=== PATIENT | female | born 1950 | race Caucasian/White ===

== ENCOUNTER → 2016-11-03 | Outpatient (CLI) | payer MEDICARE, OTHER ==
--- NOTE | 2016-11-03 17:32 | PN ---
66 -year-old female patient coming in for a yearly check regarding obstructive sleep apnea. The patient has sleep apnea. The patient has undergone a sleep study and treatment at the sleep center in [place]. She is using his CPAP at a pressure of 9 cm of water. She has heated humidity knowing that summer time she is in [place] and Winter time she is in [place] and in both instances she is not requiring any significant humidification. She is wearing a bite guard. She is using a Vi De Paz nasal pillow, and her weight is up by around 6 pounds. The patient used to weigh around 216 last year and currently he is up to 222. No major hypersomnia or sleepiness during the day. No other major comorbidities. She is averaging around 8 hours and 36 minutes of CPAP use every night. She is achieving more than 4 hours of CPAP use every night without any interruption. BP is 164/72, pulse 67, respiratory rate 16, temperature is 98.3, sats are 96% on room air. Neck size 14 inches. Height is 5 feet 4 inches, weight is 222. GENERAL APPEARANCE: Calm, comfortable. HEENT: Crowding of posterior pharynx. There is no goiter or neck mass. LUNGS: Clear to auscultation. HEART: Sounds are regular rate and rhythm. Normal S1, S2. No S3. No S4. No murmurs. ABDOMEN: Soft, nontender, no organomegaly. EXTREMITIES: No edema. No cyanosis or clubbing. IMPRESSION: 1. Obstructive sleep apnea. Continues to receive successful CPAP therapy at a pressure of 9 cm of water. 2. Grinding of the teeth, waiting a bite guard. 3. Diverticular disease. 4. Osteoarthritis. 5. Migrainous hypothyroidism. 6. Stress urine incontinence. 7. Anxiety/depression. 8. Bronchial asthma. PLAN: 1. Continue Vi De Paz nasal mask. 2. Keep the humidity off. 3. Continue CPAP pressure of 9. 4. Encourage weight loss. 5. Implement good sleep hygiene measures. 6. Will continue to follow.
== END ==
LOC: SLEEP 13:03
PROVIDERS: ATTEND Internal Medicine Critical Care Medicine
DX: G47.33 Obstructive sleep apnea (adult) (pediatric) (principal); M19.90 Unspecified osteoarthritis, unspecified site; K57.90 Diverticulosis of intestine, part unspecified, without perforation or abscess without bleeding; G47.63 Sleep related bruxism; E03.9 Hypothyroidism, unspecified; N39.3 Stress incontinence (female) (male); F41.9 Anxiety disorder, unspecified; F32.9 Major depressive disorder, single episode, unspecified; J45.909 Unspecified asthma, uncomplicated

== ENCOUNTER → 2016-11-11 | Outpatient (CLI) | payer MEDICARE, OTHER ==
--- NOTE | 2016-11-11 20:04 | WWHP ---
DATE OF SERVICE: 11/11/2016 CHIEF COMPLAINT: The patient is here for her routine gynecologic exam. HPI: This is a 66-year-old G1, P1 with an LMP of 1986. She is status post [facility] with unilateral oophorectomy in 1986 for benign reasons. The patient had her remaining ovary removed in the and this was benign. The patient discontinued estrogen replacement therapy in 02/13 as per my recommendation. She states she did have more hot flashes when she discontinued it but this has improved and is fairly tolerable. She has occasional night sweats and occasional hot flashes during the day. She is otherwise without gynecologic complaints. PAST MEDICAL HISTORY: COPD, hypothyroidism, elevated cholesterol, depression, anxiety, diverticulosis and gastroesophageal reflux disease. MEDICATIONS: 1. Omeprazole 20 mg 3 times per week. 2. Xopenex inhaler p.r.n. 3. Fluoxetine 20 mg daily. 4. Xanax 0.25 mg p.r.n. 5. Levothyroxine 75 mcg daily. 6. Rizatriptan benzoate 10 mg p.r.n. for headaches. 7. Multivitamin 1 daily. 8. Vitamin D3 1000 units daily. 9. Calcium daily. 10. Glucosamine chondroitin daily. 11. Wellbutrin 150 mg daily. ALLERGIES TO TETRACYCLINE, SYMBICORT, MORPHINE. 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 SOCIAL HISTORY: She quit smoking in 1991 and denies alcohol and drug use. She has been since 1984. This is her third marriage. She spends the winter each year in [place]. REVIEW OF SYSTEMS: Weight has been stable. She denies respiratory, cardiac problems. She denies maltreatment or falling. GI: She has had occasional constipation since starting Wellbutrin. : She continues to have some urinary leakage with coughing and sneezing. PHYSICAL EXAM: Blood pressure 137/81. Height 5 feet 4 inches. Weight 220 pounds. Temperature 98.1, pulse 76. This is a well-developed, well-nourished white female who is alert and oriented x3 in no acute distress. HEENT is within normal limits. NECK: Supple without mass or thyromegaly. CHEST AND LUNGS: Clear to auscultation. HEART: Regular rate and rhythm. Breasts are without mass or discharge and are consistent with bilateral mastectomies with bilateral implants. Axillary exam is negative for adenopathy. BACK: Negative for CVA tenderness. ABDOMEN: Soft, nontender, without palpable masses. PELVIC EXAM: External genitalia reveals mild to moderate atrophy without lesions. Vagina reveals mild to moderate atrophy without lesions. There is no evidence of prolapse. Bimanual exam is negative for mass or tenderness. Rectovaginal exam is negative for mass or tenderness and is negative for occult blood. EXTREMITIES: Nontender. IMPRESSION: 1. A 66-year-old menopausal female, status post total abdominal hysterectomy and bilateral salpingo-oophorectomy for benign reasons with normal gynecologic exam. 2. History of bilateral prophylactic mastectomies with bilateral implants in place. PLAN: 1. Pap smears and mammograms have been discontinued because of her hysterectomy and bilateral mastectomies. 2. Self-breast examination was discussed. I have recommended that she follow up with a plastic surgeon if she has any issues with her implants. 3. We have again discussed blood pressure checks and she states she will do this at home since her does have a blood pressure cuff. I have recommended she do this on a regular basis and follow up with Dr. Huggins for elevated blood pressures. 4. We have again discussed Kegel exercises and regular voiding. We have also discussed possible referral for an incontinence procedure. She states she is not interested in this at this time. 5. She does get flu shots in the fall and will do so this fall. 6. She will return in one year.
== END | disposition home or self-care (01) ==
LOC: WWCWWP 10:37
PROVIDERS: ATTEND Obstetrics & Gynecology
DX: Z53.9 Procedure and treatment not carried out, unspecified reason (principal)

== ENCOUNTER → 2016-11-17 | Outpatient (CLI) | payer MEDICARE, OTHER ==
--- NOTE | 2016-11-17 17:06 | US ---
EXAMINATION TYPE: US carotid duplex BILAT DATE OF EXAM: 11/17/2016 COMPARISON: NONE CLINICAL HISTORY: I65.21 Occlusion and stenosis right carotid. Stenosis, pt has no complaints at this time EXAM MEASUREMENTS: RIGHT: Peak Systolic Velocity (PSV) cm/sec ----- Right CCA: 66.8 ----- Right ICA: 104.0 ----- Right ECA: 72.9 ICA/CCA ratio: 1.6 RIGHT: End Diastole cm/sec ----- Right CCA: 17.1 ----- Right ICA: 31.4 ----- Right ECA: 9.2 LEFT: Peak Systolic Velocity (PSV) cm/sec ----- Left CCA: 67.7 ----- Left ICA: 97.4 ----- Left ECA: 60.9 ICA/CCA ratio: 1.4 LEFT: End Diastole cm/sec ----- Left CCA: 18.8 ----- Left ICA: 33.6 ----- Left ECA: 11.8 VERTEBRALS (direction of flow): Right Vertebral: Antegrade Left Vertebral: Antegrade No significant stenosis seen IMPRESSION: I DO NOT SEE EVIDENCE OF A HEMODYNAMICALLY SIGNIFICANT STENOSIS IN EITHER CAROTID SYSTEM. Criteria for Assigning % of Stenosis / Diameter reduction (Estimation based on the indirect measurements of the internal carotid artery velocities (ICA PSV). 1. Normal (no stenosis)=ICA PSV < 125 cm/s: ratio < 2.0: ICA EDV<40 cm/s. 2. Less than 50% stenosis=ICA PSV < 125 cm/s: ratio < 2.0: ICA EDV<40 cm/s. 3. 50 to 69% stenosis=ICA PSV of 125 to 230 cm/s: ration 2.0 ? 4.0: ICA EDV 40-100 cm/s. 4. Greater than 70% stenosis to near occlusion= ICA PSV > 230 cm/s: ratio > 4.0: ICA EDV > 100 cm/s. 5. Near occlusion= ICA PSV velocities may be low or undetectable: variable ratio and ICA EDV. 6. Total occlusion=unable to detect flow.
== END | disposition home or self-care (01) ==
LOC: RADUSWWP 15:35
PROVIDERS: ATTEND Family Medicine
DX: I65.21 Occlusion and stenosis of right carotid artery (principal)
CPT/HCPCS: 93880

== ENCOUNTER → 2017-11-16 | Outpatient (CLI) | payer MEDICARE, OTHER ==
[2017-11-16 11:58] VITALS: BP 129/82; PULSE 73; RESP 18; TEMP 97.9; BMI 34.0
--- NOTE | 2017-11-16 12:27 | P.HPOB ---
History of Present Illness H&P Date: 11/16/17 Chief Complaint: Patient is here for her routine gynecologic exam. This is a 67-year-old with an LMP of 1986. The patient has had occasional boils in the groin area and in the pubis area. She will sometimes try to pop them to get relief. She currently is not having a problem with this. She is otherwise without complaints. Review of Systems She is lost about 22 pounds over the last year. She has done this through Weight Watchers and regular exercise. She denies respiratory, cardiac, or G.I. problems. She denies maltreatment. She did fall once in August of this year. She sprained her hand. : she denies any significant problems with urinary leakage. Past Medical History Past Medical History: COPD, Hyperlipidemia, Hypertension, Thyroid Disorder ( Hypothyroid) Additional Past Medical History / Comment(s): Diverticulosis. 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 History of Any Multi-Drug Resistant Organisms: None Reported Past Surgical History: Breast Surgery (Bilateral mastectomies for prophylaxis. Bilateral breast implants with multiple revisions.), Hysterectomy (OSCAR with unilateral oophorectomy in 1986. The remaining ovary was removed in the .) , Tonsillectomy Additional Past Surgical History / Comment(s): Colon resection for diverticulosis. Colonoscopy 2013. Past Anesthesia/Blood Transfusion Reactions: No Reported Reaction Past Psychological History: Anxiety, Depression Smoking Status: Former smoker (Quit 1991) Past Alcohol Use History: None Reported Past Drug Use History: None Reported Additional History: She's been since 1984 and this is her 3rd marriage. She green in [place]. - Past Family History Father Family Medical History: Myocardial Infarction ([place]) Additional Family Medical History / Comment(s): She is adopted so family history is limited. A grandmother had breast cancer. Father was an alcoholic. Medications and Allergies Home Medications Medication Instructions Recorded Confirmed Type ALPRAZolam [Xanax] 0.25 mg PO DAILY PRN 11/16/17 11/16/17 History Calcium Carbonate [Calcium] 600 mg PO DAILY 11/16/17 11/16/17 History Cholecalciferol [Vitamin D3] 1,000 unit PO DAILY 11/16/17 11/16/17 History FLUoxetine HCL [PROzac] 20 mg PO DAILY 11/16/17 11/16/17 History Fluticasone Propionate [Flovent 2 puff INHALATION BID 11/16/17 11/16/17 History Hfa 110mcg] Glucosam/Russell-Msm1/C/Mauro/Bosw 1 each PO DAILY 11/16/17 11/16/17 History [Glucosamine-Chondroitin Tablet] Levalbuterol Tartrate [Xopenex Hfa 1 puff INHALATION DAILY 11/16/17 11/16/17 History Inhaler] Levothyroxine Sodium [Synthroid] 75 mcg PO DAILY 11/16/17 11/16/17 History Losartan Potassium 50 mg PO DAILY 11/16/17 11/16/17 History Multivitamins, Thera [Multivitamin 1 tab PO DAILY 11/16/17 11/16/17 History (formulary)] Omeprazole 20 mg PO WEEKLY 11/16/17 11/16/17 History Rizatriptan Benzoate [Maxalt PARIMUTUEL CASHIER] 10 mg PO DIRECTED 11/16/17 11/16/17 History Allergies Allergy/AdvReac Type Severity Reaction Status Date / Time amlodipine Allergy Unknown Verified 11/16/17 11:49 budesonide [From Symbicort] Allergy Anaphylaxis Verified 11/16/17 11:49 formoterol [From Symbicort] Allergy Anaphylaxis Verified 11/16/17 11:49 tetracycline Allergy Nausea Verified 11/16/17 11:49 morphine AdvReac Unknown Verified 11/16/17 11:49 Exam - Vital Signs Vital signs: Vital Signs Temp Pulse Resp BP 11/16/17 11:52 97.9 F 73 18 129/82 Intake and Output 11/15/17 11/16/17 11/16/17 22:59 06:59 14:59 Other: Weight 89.811 kg Height 5'4", BMI 34.0. This is a well-developed well-nourished white female who is alert and oriented times 3 in no acute distress. HEENT: Within normal limits. NECK: Supple without mass or thyromegaly. CHEST AND LUNGS: Clear to auscultation. HEART: Regular rate and rhythm. BREASTS: Are without mass or discharge and are consistent with bilateral mastectomies status post bilateral implant placement. AXILLARY EXAM: Negative for adenopathy. BACK: Negative for CVA tenderness. ABDOMEN: Soft, nontender, without palpable masses. PELVIC EXAM: External genitalia appears normal with mild to moderate atrophy. Vagina appears normal wild to moderate atrophy. There are slightly scarred areas in the inner buttock region and minds pubis areas consistent with previous boils. There are currently no active boils at this time. There is no evidence of prolapse. Bimanual examination is negative for mass or tenderness. RECTAL EXAM: Rectovaginal exam is negative for mass or tenderness and is negative for occult blood. EXTREMITIES: Nontender. IMPRESSION: 1. 67-year-old menopausal female status post OSCAR and BSO for benign reasons with normal gynecologic exam. 2. Intermittent boils in the groin area with no active boils at this time. PLAN: 1. Pap smears have been discontinued. 2. Self breast awareness was discussed. Mammograms have been discontinued since she status post bilateral mastectomies for prophylaxis. 3. I have recommended that she avoid popping the boils the groin area. I've recommended warm compresses and Neosporin as directed when she does develop the boils. 4. Osteoporosis prevention was discussed. She will contact Dr. Huggins's office to see when she is due for her next bone density test which was last done at [facility]. 5. She does get flu shots in the fall. 6. She will return in one year.
== END | disposition home or self-care (01) ==
LOC: WWCWWP 11:21
PROVIDERS: ATTEND Obstetrics & Gynecology
DX: Z01.419 Encounter for gynecological examination (general) (routine) without abnormal findings (principal)

== ENCOUNTER → 2018-01-04 | Outpatient (CLI) | payer MEDICARE, OTHER ==
--- NOTE | 2018-01-04 15:09 | PN ---
PROGRESS NOTE Barbra is coming for an annual check regarding JN treatment. She is on CPAP with a pressure of 9 cm of water and she continues to be extremely successful and compliant to her CPAP therapy. She is averaging more than 8 hours of CPAP use per night and specifically 8 hours and 42 minutes and her CPAP use for more than 4 hours is 100%. She has lost this amount of weight in the order of 32 pounds. Currently she weighs 190 pounds from baseline of 222. She is feeling great and she has no major hypersomnia or sleepiness during the day. She is using a Vi De Paz nose mask. At the same time the patient has purchased an [employer] 1 portable oxygen tank. The patient does lot of camping around [place] and she has been in various altitudes and she gets altitude sickness. She has a pulse oximeter, and she is wearing oxygen at 2 L any time when she is camping at the higher altitude. No morning headaches. No altered mental status. No nighttime heartburn or chest pain. No shortness of breath. No other complaints otherwise for now. REVIEW OF SYSTEMS: 12-point review of system was done. Positive findings are mentioned above history of present illness. PHYSICAL EXAMINATION: BP is 111/60, pulse 67, respirations 16, temperature 97.8, saturation 93% on room air. Weight is 190, height is 5 feet, BMI 33.1, Energy score of 6. GENERAL APPEARANCE: Calm, comfortable. Head is atraumatic, normocephalic. NECK: Supple. There is no JVD. No goiter or neck masses. LUNGS: Clear to auscultation. HEART: Sounds regular rhythm. Normal S1, S2. No S3. No murmurs. ABDOMEN: Soft, nontender. No organomegaly. EXTREMITIES: No edema. No cyanosis or clubbing. IMPRESSION: 1. Symptomatic obstructive sleep apnea currently on CPAP pressure of 9 cm of water with ongoing good clinical response and compliance. 2. Obesity with interval weight loss. Current BMI is down to 33. 3. Hypersomnia, recovered. 4. History of altitude sickness. PLAN: 1. Continue CPAP therapy at the same level of pressure. All of CPAP supplies were renewed including the tubing, filters and mask. She is using a De Paz Vi nose mask. 2. Encourage further weight loss, probably additional 10-20 pounds. 3. Oxygen at higher altitudes. 4. See me back in a year's time or earlier if needed. MMODL / IJN: [id number] /
== END | disposition home or self-care (01) ==
LOC: SLEEP 13:11
PROVIDERS: ATTEND Internal Medicine Critical Care Medicine
DX: G47.33 Obstructive sleep apnea (adult) (pediatric) (principal); E66.9 Obesity, unspecified; Z68.33 Body mass index [BMI] 33.0-33.9, adult; Z87.898 Personal history of other specified conditions; Z99.89 Dependence on other enabling machines and devices

== ENCOUNTER → 2019-01-03 | Outpatient (CLI) | payer MEDICARE, OTHER ==
[2019-01-03 15:24] VITALS: BP 124/80; PULSE 68; RESP 18; TEMP 98.5; BMI 36.2
--- NOTE | 2019-01-03 16:15 | P.HPOB ---
History of Present Illness H&P Date: 01/03/19 Chief Complaint: The patient is here for her routine gynecologic exam. This is a 68-year-old within LMP of 1986. The patient thinks her left breast implant may have shifted. She is otherwise without gynecologic complaints. She is status post OSCAR BSO for benign reasons. Review of Systems She has gained 11 pounds over the last year. This was after losing 22 pounds with Weight Watchers. She denies respiratory, cardiac and G.I. problems. She denies maltreatment or problems with falling. : she denies any significant problems with urinary leakage. Past Medical History Past Medical History: COPD, Hyperlipidemia, Hypertension, Thyroid Disorder Additional Past Medical History / Comment(s): Hypothyroidism. Diverticulosis. 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 History of Any Multi-Drug Resistant Organisms: None Reported Past Surgical History: Breast Surgery, Hysterectomy, Tonsillectomy Additional Past Surgical History / Comment(s): OSCAR with unilateral oophorectomy in 1986. Bilateral prophylactic mastectomies in 1977. Her remaining ovary removed(benign) in the . Colon resection for diverticulosis. Colonoscopy 2013. Past Anesthesia/Blood Transfusion Reactions: No Reported Reaction Past Psychological History: Anxiety, Depression Smoking Status: Former smoker Past Alcohol Use History: None Reported Past Drug Use History: None Reported - Past Family History Father Family Medical History: Myocardial Infarction ([place]) Additional Family Medical History / Comment(s): She is adopted so family history is limited. A grandmother had breast cancer. Father was an alcoholic. Medications and Allergies Home Medications Medication Instructions Recorded Confirmed Type ALPRAZolam [Xanax] 0.25 mg PO DAILY PRN 11/16/17 01/03/19 History Calcium Carbonate [Calcium] 600 mg PO DAILY 11/16/17 01/03/19 History Cholecalciferol [Vitamin D3] 1,000 unit PO DAILY 11/16/17 01/03/19 History FLUoxetine HCL [PROzac] 20 mg PO DAILY 11/16/17 01/03/19 History Fluticasone Propionate [Flovent 2 puff INHALATION BID 11/16/17 01/03/19 History Hfa 110mcg] Glucosam/Russell-Msm1/C/Mauro/Bosw 1 each PO DAILY 11/16/17 01/03/19 History [Glucosamine-Chondroitin Tablet] Levalbuterol Tartrate [Xopenex Hfa 1 puff INHALATION DAILY 11/16/17 01/03/19 History Inhaler] Levothyroxine Sodium [Synthroid] 75 mcg PO DAILY 11/16/17 01/03/19 History Multivitamins, Thera [Multivitamin 1 tab PO DAILY 11/16/17 01/03/19 History (formulary)] Omeprazole 20 mg PO WEEKLY 11/16/17 01/03/19 History Rizatriptan Benzoate [Maxalt TABLE OPERATOR] 10 mg PO DIRECTED 11/16/17 01/03/19 History Olmesartan [Benicar] 20 mg PO DAILY 01/03/19 01/03/19 History Allergies Allergy/AdvReac Type Severity Reaction Status Date / Time amlodipine Allergy Unknown Verified 01/03/19 15:25 budesonide [From Symbicort] Allergy Anaphylaxis Verified 01/03/19 15:25 formoterol [From Symbicort] Allergy Anaphylaxis Verified 01/03/19 15:25 tetracycline Allergy Nausea Verified 01/03/19 15:25 morphine AdvReac Unknown Verified 01/03/19 15:25 Exam Vital Signs Temp Pulse Resp BP Pulse Ox 01/03/19 15:17 98.5 F 68 18 124/80 95 Intake and Output 01/03/19 01/03/19 01/03/19 06:59 14:59 22:59 Other: Weight 95.708 kg Height 5'4", weight 211 pounds, BMI 36.2. This is a well-developed well-nourished white female who is alert and oriented times 3 in no acute distress. HEENT: Within normal limits. NECK: Supple without mass or thyromegaly. CHEST AND LUNGS: Clear to auscultation. HEART: Regular rate and rhythm. BREASTS: Are without mass or discharge. Both breasts are consistent with bilateral implants. The left implant seems shifted slightly lateral. There are no palpable masses and the implants are both soft and nontender. AXILLARY EXAM: Negative for adenopathy. BACK: Negative for CVA tenderness. ABDOMEN: Soft without palpable masses. There is minimal tenderness at her lower abdominal incision site. The incision is non-erythematous and intact. With Valsalva seems to be a very slight bulge at the incision site where she is slightly tender. PELVIC EXAM: External genitalia appears normal with mild to moderate atrophy. Vagina appears normal with mild to moderate atrophy. There is no evidence of prolapse. Bimanual examination is negative for mass. There is minimal tende rness in the lower abdomen as described in the abdominal examination. RECTAL EXAM: Rectovaginal exam is negative for mass or tenderness and is negative for occult blood. EXTREMITIES: Nontender. IMPRESSION: 1. 68-year-old menopausal female status post OSCAR BSO with normal gynecologic exam. 2. History of bilateral mastectomies for prophylaxis. There may be a slight lateral shift in the left implant. 3. Possible lower abdominal incisional hernia. The patient states that has not caused her much problem. PLAN: 1. Pap smears have been discontinued. 2. Self breast awareness was discussed with the patient. 3. Mammograms have been discontinued because of the bilateral mastectomies. 4. She was instructed to follow-up with her plastic surgeon who put in the implants. She states she will do this in the near future. 5. She will follow up with her primary care doctor if she is having lower abdominal incisional pains for evaluation and possible referral to a general surgeon. 6. She does get flu shots in the fall. 7. The patient was advised to return in 1-2 years for her well woman examination.
== END | disposition home or self-care (01) ==
LOC: WWCWWP 15:12
PROVIDERS: ATTEND Obstetrics & Gynecology
DX: Z53.9 Procedure and treatment not carried out, unspecified reason (principal)

== ENCOUNTER → 2019-01-11 | Outpatient (CLI) | payer MEDICARE, OTHER ==
--- NOTE | 2019-01-11 15:28 | BD ---
EXAMINATION TYPE: Axial Bone Density DATE OF EXAM: 01/11/2019 COMPARISON: 02.28.2003 CLINICAL HISTORY: Z 78.0 Height: 64 Weight: 209.4 FRAX RISK QUESTIONS: Alcohol (3 or more units per day): no Family History (Parent hip fracture): no Glucocorticoids (More than 3mos): no (Ex: prednisone, prednisolone, methylprednisolone, dexamethasone, and hydrocortisone). History of Fracture in Adulthood: yes Secondary Osteoporosis: 1. Type 1 Diabetes: no 2. Hyperthyroidism: no 3. Menopause before 45: yes 4. Malnutrition: no 5. Chronic liver disease: no Rheumatoid Arthritis: no Current Tobacco Use: no RISK FACTORS HISTORY OF: Family History of Osteoporosis: Active: sometimes Diet low in dairy products/other sources of calcium: yes Postmenopausal woman: 1986 partial hysterectomy MEDICATIONS: fluoretine, flovent, xopenex, omeprazole, rizatriptan, xanax, vitamins Thyroid Medications: synthroid How Lon years Additional History: EXAM MEASUREMENTS: Bone mineral densitometry was performed using the [employer] System. Bone mineral density as measured about the Lumbar spine is: ----- L1-L4(G/cm2): 1.190 T Score Values are as follows: ----- L2: 0.5 ----- L3: 0.3 ----- L4: -0.2 ----- L1-L4: 0.1 Bone mineral density has: increased 3.0 % since study of: 02.28.2003 Bone mineral density about the R hip (g/cm2): 0.890 Bone mineral density about the L hip (g/cm2): 0.899 T Score values are as follows: -----R Neck: -1.1 -----L Neck: -1.0 -----R Total: 0.0 -----L Total: 0.5 Bone mineral density has: decreased -4.2 % since study of: 02.28.2003 IMPRESSION: Osteopenia (T Score between -2.5 and -1). There is slightly increased risk of fracture and the patient may be considered for treatment. Re-Screen 2-5 years. NOTE: T-SCORE=SD OF THE YOUNG ADULT MEAN.
--- NOTE | 2019-01-17 18:18 | P.PN ---
Progress Note - Text Progress Note Date: 01/17/19 OUTPATIENT FOLLOW-UP NOTE TEST(S)/RESULTS: bone density test done on 01/11/2019 showed osteopenia. METHOD OF NOTIFICATION: the patient was notified by phone. PATIENT COMMENTS: DIAGNOSIS: osteopenia DISCUSSION: her results were closer to normal than osteoporosis. Her previous study was done in 2002 with about a 4% decrease in the hips. PLAN: I have stressed the importance of getting adequate calcium, vitamin D, and regular exercise. We will repeat the bone density test in 3 years. The patient was advised to return in 1-2 years for her well woman examination.
== END | disposition home or self-care (01) ==
LOC: RADBDWWP 13:13
PROVIDERS: ATTEND Obstetrics & Gynecology
DX: M81.8 Other osteoporosis without current pathological fracture (principal); Z78.0 Asymptomatic menopausal state
CPT/HCPCS: 77080

== ENCOUNTER → 2019-01-17 | Outpatient (CLI) | payer MEDICARE, OTHER ==
--- NOTE | 2019-01-17 17:08 | PN ---
PROGRESS NOTE This is an annual check for this patient who is 68. She is coming in for a compliancy check regarding obstructive sleep apnea treatment. The patient has done very well. She is looking to update her CPAP machine, as the patient has an older-generation Respironics unit which is set at a pressure of 9 cm of water. She continues to average more than 8 hours of CPAP use per night. Her weight is stable. There have been no issues with her current machine. She is wearing it every night. She is using the Vi De Paz nose mask, small size. She travels between [place] and [place] and she may benefit from a second CPAP machine to be used in 2 different states. No headaches. No altered mentation. No hypersomnia or sleepiness during the day. She has a pulse ox of 95% on room-air oxygen. No other significant events over the past year or so. REVIEW OF SYSTEMS: Fourteen-point review of systems was done. Positive findings are all mentioned in the history of present illness. She has altitude sickness and she has been using oxygen and she has utilized Inogen One system. She has some mild chronic exertional dyspnea. No chest pain. No angina. No palpitations. No sleepwalking or sleeptalking. No parasomnias. No nightmares. No anxiety or panic attacks. PHYSICAL EXAMINATION: BP is 151/75, pulse 68, respirations 16, temperature 98.1, saturation 95% on room air. Weight is 208. Height is 5 feet 3 inches. Tatamy score is 8. GENERAL APPEARANCE: Calm, comfortable. HEAD: Atraumatic, normocephalic. NECK: Supple. No JVD. No goiter or neck masses. LUNGS: Clear to auscultation. HEART: Heart sounds are regular rate and rhythm. Normal S1, S2. No S3, S4. No murmurs. ABDOMEN: Soft, nontender. No organomegaly. EXTREMITIES: No edema. No cyanosis or clubbing. NEUROLOGIC: Alert and oriented x3. No focal neurological deficits. PSYCHIATRIC: Negative for anxiety or depression. IMPRESSION: 1. Obstructive sleep apnea. She continues to be successfully treated with a CPAP pressure of 9. We will order a new CPAP machine for her, which will be a ResMed unit at the same level of pressure. She continues to use the small-sized Vi nose mask. 2. Hypersomnia, recovered. 3. Altitude sickness; utilizes oxygen during her trips to [place]. 4. Hypersomnia, improved. 5. Hypothyroidism, on Synthroid 75 mcg p.o. daily. 6. Hypertension. PLAN: 1. Will give an order for a new CPAP unit at the same level of pressure, which is 9 cm of water. 2. Compliancy check will be done either here or in [place]. The patient opted to use her DME in [place] and we will sent out the prescription. She will see me back after she arrives in [place] next year. Will continue to follow. MMODL / IJN: [id number] /

== ENCOUNTER → 2020-01-09 | Outpatient (CLI) | payer MEDICARE, OTHER ==
[2020-01-09 16:15] VITALS: BP 115/80; PULSE 89; RESP 18; TEMP 98.1
--- NOTE | 2020-01-09 17:11 | P.HPOB ---
History of Present Illness H&P Date: 01/09/20 Chief Complaint: The patient is here for her routine gynecologic exam. This is a 69-year-old with an LMP of 1986. She is status post OSCAR/BSO for benign reasons. She is complaining of some perineal and perianal irritation and she believes she may be having an HSV outbreak. She has very few outbreaks, however, she believes large amounts of stress recently may have caused her to have an HSV outbreak. She states it started yesterday. She is otherwise without complaints. Review of Systems She has gained about 20 pounds over the past year and attributes this to the Covid pandemic. She states she has been less active because of the pandemic. She denies respiratory, cardiac and G.I. problems. She denies maltreatment. She states she fell about 6 months ago and broke her left arm. The fall was related to a faulty step in her motorhome. : she denies any significant problems with urinary leakage. Past Medical History Past Medical History: COPD, Hyperlipidemia, Hypertension, Thyroid Disorder Additional Past Medical History / Comment(s): Hypothyroidism. Diverticulosis. Osteopenia. 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 History of Any Multi-Drug Resistant Organisms: None Reported Past Surgical History: Breast Surgery, Hysterectomy, Tonsillectomy Additional Past Surgical History / Comment(s): OSCAR with unilateral oophorectomy in 1986. Bilateral prophylactic mastectomies in 1977. Her remaining ovary removed(benign) in the . Colon resection for diverticulosis. Colonoscopy 2013. Past Anesthesia/Blood Transfusion Reactions: No Reported Reaction Past Psychological History: Anxiety, Depression Smoking Status: Former smoker Past Alcohol Use History: None Reported Additional Past Alcohol Use History / Comment(s): Quit smoking in 1991. Past Drug Use History: None Reported Additional History: She has been since 1984 and this is her third marriage. She spends the green in [place]. - Past Family History Father Family Medical History: Myocardial Infarction ([place]) Additional Family Medical History / Comment(s): She is adopted so family history is limited. A grandmother had breast cancer. Father was an alcoholic. Son(s) Family Medical History: Diabetes Mellitus Medications and Allergies Home Medications Medication Instructions Recorded Confirmed Type ALPRAZolam [Xanax] 0.25 mg PO DAILY PRN 11/16/17 01/09/20 History Calcium Carbonate [Calcium] 600 mg PO DAILY 11/16/17 01/09/20 History Cholecalciferol [Vitamin D3] 1,000 unit PO DAILY 11/16/17 01/09/20 History FLUoxetine HCL [PROzac] 20 mg PO DAILY 11/16/17 01/09/20 History Fluticasone Propionate [Flovent 2 puff INHALATION BID 11/16/17 01/09/20 History Hfa 110mcg] Glucosam/Russell-Msm1/C/Mauro/Bosw 1 each PO DAILY 11/16/17 01/09/20 History [Glucosamine-Chondroitin Tablet] Levalbuterol Tartrate [Xopenex Hfa 1 puff INHALATION DAILY 11/16/17 01/09/20 History Inhaler] Levothyroxine Sodium [Synthroid] 75 mcg PO DAILY 11/16/17 01/09/20 History Multivitamins, Thera [Multivitamin 1 tab PO DAILY 11/16/17 01/09/20 History (formulary)] Omeprazole 20 mg PO WEEKLY 11/16/17 01/09/20 History Rizatriptan Benzoate [Maxalt COUNTY SUPERVISOR] 10 mg PO DIRECTED 11/16/17 01/09/20 History Olmesartan [Benicar] 20 mg PO DAILY 01/03/19 01/09/20 History Allergies Allergy/AdvReac Type Severity Reaction Status Date / Time amlodipine Allergy Unknown Verified 01/09/20 16:11 budesonide [From Symbicort] Allergy Anaphylaxis Verified 01/09/20 16:11 formoterol [From Symbicort] Allergy Anaphylaxis Verified 01/09/20 16:11 tetracycline Allergy Nausea Verified 01/09/20 16:11 morphine AdvReac Unknown Verified 01/09/20 16:11 Exam Vital Signs Temp Pulse Resp BP Pulse Ox 01/09/20 16:12 98.1 F 89 18 115/80 98 Intake and Output 01/09/20 01/09/20 01/09/20 06:59 14:59 22:59 Other: Weight 104.78 kg Height 5 feet 4 inches, weight 231 pounds, BMI 39.7. This is a well-developed well-nourished heavyset white female who is alert and oriented times 3 in no acute distress. HEENT: Within normal limits. NECK: Supple without mass or thyromegaly. CHEST AND LUNGS: Clear to auscultation. HEART: Regular rate and rhythm. BREASTS: Are without mass or discharge. Breasts are consistent with bilateral mastectomies status post implant reconstruction. AXILLARY EXAM: Negative for adenopathy. BACK: Negative for CVA tenderness. ABDOMEN: Soft, nontender, without palpable masses. PELVIC EXAM: External genitalia appears normal with mild to moderate atrophy. The perineum and perianal areas are slightly erythematous with small ulcerated areas consistent with HSV lesions. She states these are the areas she typically has gotten genital HSV. Vagina appears normal with mild atrophy. There is no evidence of prolapse. Bimanual examination is negative for mass or tenderness. RECTAL EXAM: Rectovaginal exam is negative for mass or tenderness and is negative for occult blood. EXTREMITIES: Nontender. IMPRESSION: 1. 69-year-old menopausal female status post OSCAR/BSO for benign reasons with pr obable HSV outbreak (secondary) in the perineum and perianal areas. 2. History of osteopenia with recent arm fracture following a fall. 3. History of bilateral mastectomies for prophylaxis. PLAN: 1. Pap smears have been discontinued. 2. Self breast awareness. If she is having issues with breast implants, she was advised to seek a plastic surgeon for evaluation. 3. Mammograms have been discontinued because of the bilateral mastectomies. 4. Osteoporosis prevention was discussed. I have stressed the importance of adequate calcium, vitamin D and regular exercise. Recommended amounts of calcium and vitamin D were also discussed. Because she had a arm fracture after a recent fall, we have discussed possible treatment for weaker bones. We have discussed pros and cons of medications such as Fosamax. We have discussed how it can decrease the risk for fractures. We have also discussed possible risks such as risk for osteonecrosis of the jaw and esophageal ulceration. She is declining this type of treatment at this time. She was instructed to call if she changes her mind. We will plan on repeating bone density test in 1 year since it was done in December 2018. 5. Valtrex 500 mg by mouth twice a day 3 days. The electronic prescription will be sent to [facility] pharmacy on [facility] [facility]. 3 refills will also be given. 6. She does get flu shots in the fall and plans to get one in the next few months. 7. She was advised to return in one year for her annual well woman exam.
--- NOTE | 2020-01-12 13:36 | P.PN ---
Progress Note - Text Progress Note Date: 01/12/20 The patient left a message that the Valtrex PO did not help after the 3 day course. She says she did better for the outbreaks with Zovirax cream. The prescription for acyclovir cream was sent electronically to [facility]. She is to call if questions or problems.
== END | disposition home or self-care (01) ==
LOC: WWCWWP 15:59
PROVIDERS: ATTEND Obstetrics & Gynecology
DX: Z53.9 Procedure and treatment not carried out, unspecified reason (principal)

== ENCOUNTER → 2020-03-28 | Outpatient (CLI) | payer MEDICARE, OTHER | END | disposition home or self-care (01) | LOC: LABWHC1 15:24 | PROVIDERS: ATTEND Nurse Practitioner Family | DX: Z03.818 Encounter for observation for suspected exposure to other biological agents ruled out (principal) | CPT/HCPCS: U0003; C9803 ==

== ENCOUNTER → 2020-03-29 | Outpatient (CLI) | payer MEDICARE, OTHER ==
--- NOTE | 2020-03-29 14:26 | US ---
EXAMINATION TYPE: US kidneys/renal and bladder DATE OF EXAM: 03/29/2020 COMPARISON: NONE CLINICAL HISTORY: R93.89 ABN FINDINGS OF DIAGNOSTIC IMAGING. recent MRI showed cyst on one of her kid ne[place]on EXAM MEASUREMENTS: Right Kidney: 9.4 x 4.4 x 4.6 cm Left Kidney: 9.2 x 4.0 x 5.3 cm Right Kidney: No hydronephrosis or masses seen Left Kidney: 1.7 x 1.9cm exophytic cyst seen laterally Bladder: wnl Bilateral Jets seen: yes There is no evidence for hydronephrosis at this point in time. No nephrolithiasis is seen. No bianca rning solid or cystic masses are identified. Technologist herrera 1.7 cm exophytic thin-walled cyst lat erally from left kidney. The urinary bladder is satisfactorily distended. Bilateral ureteral jets ar e seen. IMPRESSION: There is 1.7 cm exophytic thin-walled cyst laterally left kidney. Correlation with outside MRI imagin g and/or report advised.
== END | disposition home or self-care (01) ==
LOC: RADUSWWP 13:25
PROVIDERS: ATTEND Family Medicine
DX: N28.1 Cyst of kidney, acquired (principal)
CPT/HCPCS: 76770

== ENCOUNTER → 2021-01-14 | Outpatient (CLI) | payer MEDICARE, OTHER ==
[2021-01-14 11:42] VITALS: BP 160/80; PULSE 68; RESP 20; TEMP 98
--- NOTE | 2021-01-14 12:19 | P.HPOB ---
History of Present Illness H&P Date: 01/14/21 Chief Complaint: The patient is here for her routine gynecologic exam. This is a 70-year-old with an LMP of 1986. The patient is status post OSCAR/BSO for benign reasons. She continues to have infrequent genital HSV outbreaks especially when she is under stress. She prefers using Valtrex cream over pills. She is otherwise without gynecologic complaints. Review of Systems The patient's weight has been stable over the last year. She denies respiratory, cardiac, or G.I. problems. Musculoskeletal: She is having knee problems and is seeing somebody for this. Past Medical History Past Medical History: Cancer, COPD, Hyperlipidemia, Hypertension, Musculoskeletal Disorder, Thyroid Disorder Additional Past Medical History / Comment(s): Hypothyroidism. Diverticulosis. Osteopenia. Chronic knee problems. 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 History of Any Multi-Drug Resistant Organisms: None Reported Past Surgical History: Breast Surgery, Hysterectomy, Tonsillectomy Additional Past Surgical History / Comment(s): OSCAR with unilateral oophorectomy in 1986. Bilateral prophylactic mastectomies in 1977. Her remaining ovary removed(benign) in the . Colon resection for diverticulosis. Colonoscopy 2013. Cryotherapy of squamous cell skin cancer on the back 2020. Past Anesthesia/Blood Transfusion Reactions: No Reported Reaction Past Psychological History: Anxiety, Depression Smoking Status: Former smoker Past Alcohol Use History: None Reported Additional Past Alcohol Use History / Comment(s): Quit smoking in 1991. Past Drug Use History: None Reported - Past Family History Father Family Medical History: Myocardial Infarction ([place]) Additional Family Medical History / Comment(s): She is adopted so family history is limited. A grandmother had breast cancer. Father was an alcoholic. Son(s) Family Medical History: Diabetes Mellitus Medications and Allergies Home Medications Medication Instructions Recorded Confirmed Type ALPRAZolam [Xanax] 0.25 mg PO DAILY PRN 11/16/17 01/14/21 History Calcium Carbonate [Calcium] 600 mg PO DAILY 11/16/17 01/14/21 History Cholecalciferol [Vitamin D3] 1,000 unit PO DAILY 11/16/17 01/14/21 History FLUoxetine HCL [PROzac] 20 mg PO DAILY 11/16/17 01/14/21 History Fluticasone Propionate [Flovent 2 puff INHALATION BID 11/16/17 01/14/21 History Hfa 110mcg] Glucosam/Russell-Msm1/C/Mauro/Bosw 1 each PO DAILY 11/16/17 01/14/21 History [Glucosamine-Chondroitin Tablet] Levalbuterol Tartrate [Xopenex Hfa 1 puff INHALATION DAILY 11/16/17 01/14/21 H istory Inhaler] Levothyroxine Sodium [Synthroid] 75 mcg PO DAILY 11/16/17 01/14/21 History Multivitamins, Thera [Multivitamin 1 tab PO DAILY 11/16/17 01/14/21 History (formulary)] Omeprazole 20 mg PO WEEKLY 11/16/17 01/14/21 History Rizatriptan Benzoate [Maxalt CHIEF WHARFINGER] 10 mg PO DIRECTED 11/16/17 01/14/21 History Olmesartan [Benicar] 20 mg PO DAILY 01/03/19 01/14/21 History Acyclovir 1 applic TOPICAL DIRECTED 4 01/12/20 01/14/21 Rx Days #5 gram Cetirizine HCl [Zyrtec] 10 mg PO DAILY 01/14/21 01/14/21 History Allergies Allergy/AdvReac Type Severity Reaction Status Date / Time amlodipine Allergy Unknown Verified 01/14/21 11:32 budesonide [From Symbicort] Allergy Anaphylaxis Verified 01/14/21 11:32 formoterol [From Symbicort] Allergy Anaphylaxis Verified 01/14/21 11:32 tetracycline Allergy Nausea Verified 01/14/21 11:32 morphine AdvReac Unknown Verified 01/14/21 11:32 Exam Vital Signs Temp Pulse Resp BP Pulse Ox 01/14/21 11:36 98.0 F 68 20 160/80 95 Intake and Output 01/13/21 01/14/21 01/14/21 22:59 06:59 14:59 Other: Weight 104.326 kg Height 5 feet 4 inches, weight 230 pounds, BMI 39.5. This is a well-developed well-nourished heavyset white female who is alert and oriented times 3 in no acute distress. HEENT: Within normal limits. NECK: Supple without mass or thyromegaly. CHEST AND LUNGS: Clear to auscultation. HEART: Regular rate and rhythm. BREASTS: Are without mass or discharge. Breasts are consistent with bilateral mastectomies with implants. AXILLARY EXAM: Negative for adenopathy. BACK: Negative for CVA tenderness. ABDOMEN: Soft, obese, nontender, without palpable masses. PELVIC EXAM: External genitalia appears normal with mild atrophy. Vagina appears normal is mild atrophy. There is no evidence of prolapse. Bimanual examination is negative for mass or tenderness. RECTAL EXAM: Rectovaginal exam is negative for mass or tenderness and is negative for occult blood. EXTREMITIES: Nontender. IMPRESSION: 1. 70-year-old menopausal female status post OSCAR/BSO for benign reasons with normal gynecologic exam. 2. History of osteopenia. 3. She is status post bilateral mastectomies for prophylaxis. 4. History of occasional genital HSV outbreaks. PLAN: 1. Pap smears have been discontinued. 2. Self breast awareness was discussed with the patient. 3. Screening mammograms have been discontinued because of her bilateral mastectomies. 4. Valtrex cream as directed as needed. The electronic prescription will be sent to [facility] pharmacy. 5. She states she is scheduled for colonoscopy on 01/22/2021. 6. She has completed her Covid vaccination series. 7.Osteoporosis prevention was discussed. I have stressed the importance of adequate calcium, vitamin D and regular exercise. Recommended amounts of calcium and vitamin D were also discussed. I have recommended bone density testing since her last one was 2 years ago. The order slip was given to the patient for this. 8. She was advised to return in one year for her annual well woman exam.
== END ==
LOC: WWCWWP 11:25
PROVIDERS: ATTEND Obstetrics & Gynecology
DX: Z01.419 Encounter for gynecological examination (general) (routine) without abnormal findings (principal); A60.09 Herpesviral infection of other urogenital tract; E78.5 Hyperlipidemia, unspecified; I10 Essential (primary) hypertension; E03.9 Hypothyroidism, unspecified; J44.9 Chronic obstructive pulmonary disease, unspecified; F41.9 Anxiety disorder, unspecified; F32.9 Major depressive disorder, single episode, unspecified; Z87.891 Personal history of nicotine dependence; Z87.39 Personal history of other diseases of the musculoskeletal system and connective tissue; Z79.51 Long term (current) use of inhaled steroids; Z90.710 Acquired absence of both cervix and uterus; Z90.722 Acquired absence of ovaries, bilateral; Z90.13 Acquired absence of bilateral breasts and nipples; Z88.5 Allergy status to narcotic agent; Z88.1 Allergy status to other antibiotic agents; Z88.8 Allergy status to other drugs, medicaments and biological substances; Z79.899 Other long term (current) drug therapy

== ENCOUNTER 2021-02-01 11:32 | Emergency (ER) | payer MEDICARE, OTHER ==
[2021-02-01 11:39] VITALS: RESP 18
--- NOTE | 2021-02-01 12:10 | ED ---
General Adult HPI - General Chief complaint: Upper Respiratory Infection Stated complaint: Weakness Time Seen by Provider: 02/01/21 11:43 Source: patient Mode of arrival: ambulatory Limitations: no limitations - History of Present Illness Initial comments: 71-year-old female presenting to the emergency department with a chief complaint of cough and weakness. Patient reports her began to develop very similar symptoms and she started soon after. States she has been experiencing a productive cough. She reports having chills at home with nausea and one episode of vomiting. Also reports diarrhea over the last week. She also reports a bit of a sore throat areas states that Wednesday she went to an urgent care and was given Tessalon Perles and had a negative rapid covert test. She reports the symptoms are worsening. Denies any abdominal or back pain. Denies visual changes, one-sided weakness or paresthesias. Reports decreased appetite as well. Covid vaccinated - Related Data Home Medications Medication Instructions Recorded Confirmed ALPRAZolam [Xanax] 0.25 mg PO DAILY PRN 11/16/17 01/14/21 Calcium Carbonate [Calcium] 600 mg PO DAILY 11/16/17 01/14/21 Cholecalciferol [Vitamin D3] 1,000 unit PO DAILY 11/16/17 01/14/21 FLUoxetine HCL [PROzac] 20 mg PO DAILY 11/16/17 01/14/21 Fluticasone Propionate [Flovent 2 puff INHALATION BID 11/16/17 01/14/21 Hfa 110mcg] Glucosam/Russell-Msm1/C/Mauro/Bosw 1 each PO DAILY 11/16/17 01/14/21 [Glucosamine-Chondroitin Tablet] Levalbuterol Tartrate [Xopenex Hfa 1 puff INHALATION DAILY 11/16/17 01/14/21 Inhaler] Levothyroxine Sodium [Synthroid] 75 mcg PO DAILY 11/16/17 01/14/21 Multivitamins, Thera [Multivitamin 1 tab PO DAILY 11/16/17 01/14/21 (formulary)] Omeprazole 20 mg PO WEEKLY 11/16/17 01/14/21 Rizatriptan Benzoate [Maxalt [employer]] 10 mg PO DIRECTED 11/16/17 01/14/21 Olmesartan [Benicar] 20 mg PO DAILY 01/03/19 01/14/21 Cetirizine HCl [Zyrtec] 10 mg PO DAILY 01/14/21 01/14/21 Previous Rx's Medication Instructions Recorded Acyclovir 1 applic TOPICAL DIRECTED 4 01/14/21 Days #5 gram Azithromycin [Zithromax Z-pack (6 0 mg PO DIRECTED #1 packet 02/01/21 tabs)] Allergies Allergy/AdvReac Type Severity Reaction Status Date / Time amlodipine Allergy Unknown Verified 02/01/21 11:34 budesonide [From Symbicort] Allergy Anaphylaxis Verified 02/01/21 11:34 formoterol [From Symbicort] Allergy Anaphylaxis Verified 02/01/21 11:34 tetracycline Allergy Nausea Verified 02/01/21 11:34 morphine AdvReac Unknown Verified 02/01/21 11:34 Review of Systems ROS Statement: Those systems with pertinent positive or pertinent negative responses have been documented in the HPI. ROS Other: All systems not noted in ROS Statement are negative. Past Medical History Past Medical History: Cancer, COPD, Hyperlipidemia, Hypertension, Musculoskeletal Disorder, Thyroid Disorder Additional Past Medical History / Comment(s): Hypothyroidism. Diverticulosis. Osteopenia. Chronic knee problems. 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 History of Any Multi-Drug Resistant Organisms: None Reported Past Surgical History: Breast Surgery, Hysterectomy, Tonsillectomy Additional Past Surgical History / Comment(s): OSCAR with unilateral oophorectomy in 1986. Bilateral prophylactic mastectomies in 1977. Her remaining ovary removed(benign) in the . Colon resection for diverticulosis. Colonoscopy 2013. Cryotherapy of squamous cell skin cancer on the back 2020. Past Anesthesia/Blood Transfusion Reactions: No Reported Reaction Past Psychological History: Anxiety, Depression Smoking Status: Former smoker Past Alcohol Use History: None Reported Past Drug Use History: None Reported - Past Family History Father Family Medical History: Myocardial Infarction ([place]) Additional Family Medical History / Comment(s): She is adopted so family history is limited. A grandmother had breast cancer. Father was an alcoholic. Son(s) Family Medical History: Diabetes Mellitus General Exam Limitations: no limitations General appearance: alert, in no apparent distress, obese Head exam: Present: atraumatic, normocephalic, normal inspection Eye exam: Present: normal appearance Pupils: Present: normal accommodation ENT exam: Present: normal exam, normal oropharynx, mucous membranes moist. Absent: TM's normal bilaterally, normal external ear exam Neck exam: Present: normal inspection, full ROM. Absent: tenderness, lymphadenopathy Respiratory exam: Present: normal lung sounds bilaterally. Absent: respiratory distress, wheezes, rales, rhonchi, stridor, accessory muscle use Cardiovascular Exam: Present: regular rate, normal rhythm, normal heart sounds Extremities exam: Present: normal inspection, full ROM, normal capillary refill. Absent: tenderness, pedal edema, joint swelling Back exam: Present: normal inspection, full ROM. Absent: tenderness, CVA tenderness (R), CVA tenderness (L) Neurological exam: Present: alert, oriented X3 Psychiatric exam: Present: normal affect, normal mood Skin exam: Present: warm, dry, intact, normal color Course Vital Signs 02/01/21 02/01/21 11:34 13:08 Temperature 98.9 F 98 F Pulse Rate 79 98 Respiratory 18 18 Rate Blood Pressure 124/85 139/61 O2 Sat by Pulse 94 L 97 Oximetry Medical Decision Making - Medical Decision Making 71-year-old female presenting to the emergency department with a chief complaint of cough and weakness. On physical examination, patient is well-appearing. Lungs are clear to auscultation. No abdominal tenderness. Vital signs are within normal limits. Patient is positive for Covid. Influenza negative. X- ray reveals possible new pneumonia in the right lower lung. Case was discussed with Dr. Syed along with laboratory work and imaging. He is not concerned for possible pneumonia at this time. I will however, send azithromycin to the pharmacy for the patient. Mild elevation of d-dimer, normal for age adjusted. Patient will be given a monoclonal antibody. Observed in the emergency department afterward. She will be discharged and advised to quarantine. Return parameters were discussed the patient is understanding and agreeable. Case discussed with Dr. Syed. - Lab Data Result diagrams: 02/01/21 12:08 02/01/21 12:08 Lab Results 02/01/21 02/01/21 02/01/21 Range/Units 12:08 12:08 12:08 WBC 3.9 (3.8-10.6) k/uL RBC 4.19 (3.80-5.40) m/uL Hgb 13.4 (11.4-16.0) gm/dL Hct 39.3 (34.0-46.0) % MCV 93.6 (80.0-100.0) fL MCH 32.0 (25.0-35.0) pg MCHC 34.2 (31.0-37.0) g/dL RDW 12.9 (11.5-15.5) % Plt Count 184 (150-450) k/uL MPV 7.7 Neutrophils % 65 % Lymphocytes % 25 % Monocytes % 6 % Eosinophils % 1 % Basophils % 1 % Neutrophils # 2.6 (1.3-7.7) k/uL Lymphocytes # 1.0 (1.0-4.8) k/uL Monocytes # 0.2 (0-1.0) k/uL Eosinophils # 0.0 (0-0.7) k/uL Basophils # 0.0 (0-0.2) k/uL PT (9.0-12.0) sec INR (<1.2) APTT (22.0-30.0) sec D-Dimer (<0.60) mg/L FEU Sodium (137-145) mmol/L Potassium (3.5-5.1) mmol/L Chloride (98-107) mmol/L Carbon Dioxide (22-30) mmol/L Anion Gap mmol/L BUN (7-17) mg/dL Creatinine (0.52-1.04) mg/dL Est GFR (CKD-EPI)AfAm (>60 ml/min/1.73 sqM) Est GFR (CKD-EPI)NonAf (>60 ml/min/1.73 sqM) Glucose (74-99) mg/dL Calcium (8.4-10.2) mg/dL Total Bilirubin (0.2-1.3) mg/dL AST (14-36) U/L ALT (4-34) U/L Alkaline Phosphatase (38-126) U/L Troponin I (0.000-0.034) ng/mL Total Protein (6.3-8.2) g/dL Albumin (3.5-5.0) g/dL Coronavirus (PCR) Detected A (Not Detectd) Influenza Type A RNA Not Detected (Not Detectd) Influenza Type B (PCR) Not Detected (Not Detectd) 02/01/21 02/01/2121 Range/Units 12:08 12:08 12:08 WBC (3.8-10.6) k/uL RBC (3.80-5.40) m/uL Hgb (11.4-16.0) gm/dL Hct (34.0-46.0) % MCV (80.0-100.0) fL MCH (25.0-35.0) pg MCHC (31.0-37.0) g/dL RDW (11.5-15.5) % Plt Count (150-450) k/uL MPV Neutrophils % % Lymphocytes % % Monocytes % % Eosinophils % % Basophils % % Neutrophils # (1.3-7.7) k/uL Lymphocytes # (1.0-4.8) k/uL Monocytes # (0-1.0) k/uL Eosinophils # (0-0.7) k/uL Basophils # (0-0.2) k/uL PT 9.7 (9.0-12.0) sec INR 0.9 (<1.2) APTT 22.2 (22.0-30.0) sec D-Dimer 0.70 H (<0.60) mg/L FEU Sodium 138 (137-145) mmol/L Potassium 3.8 (3.5-5.1) mmol/L Chloride 107 (98-107) mmol/L Carbon Dioxide 22 (22-30) mmol/L Anion Gap 9 mmol/L BUN 18 H (7-17) mg/dL Creatinine 0.66 (0.52-1.04) mg/dL Est GFR (CKD-EPI)AfAm >90 (>60 ml/min/1.73 sqM) Est GFR (CKD-EPI)NonAf 89 (>60 ml/min/1.73 sqM) Glucose 107 H (74-99) mg/dL Calcium 8.6 (8.4-10.2) mg/dL Total Bilirubin 0.4 (0.2-1.3) mg/dL AST 25 (14-36) U/L ALT 14 (4-34) U/L Alkaline Phosphatase 64 (38-126) U/L Troponin I <0.012 (0.000-0.034) ng/mL Total Protein 6.0 L (6.3-8.2) g/dL Albumin 3.5 (3.5-5.0) g/dL Coronavirus (PCR) (Not Detectd) Influenza Type A RNA (Not Detectd) Influenza Type B (PCR) (Not Detectd) Disposition Clinical Impression: COVID-19 Disposition: HOME SELF-CARE Condition: Stable Instructions (If sedation given, give patient instructions): Coronavirus Disease 2019 (COVID-19) Additional Instructions: Please return to the Emergency Department if symptoms worsen or any other concerns. Is patient prescribed a controlled substance at d/c from ED?: No Referrals: Harika Huggins III, MD [Primary Care Provider] - 1-2 days Time of Disposition: 14:06
[2021-02-01 12:33] LABS: Basophils % (A) 1 %; Eosinophils % (A) 1 %; HCT 39.3 % (34.0-46.0); HGB 13.4 gm/dL (11.4-16.0); Lymphocytes % (A) 25 %; MCHC 34.2 g/dL (31.0-37.0); MCV 93.6 fL (80.0-100.0); Mean Platelet Volume 7.7; Monocytes # (A) 0.2 k/uL (0-1.0); Monocytes % (A) 6 %; Neutrophils # (A) 2.6 k/uL (1.3-7.7); Neutrophils % (A) 65 %; Platelet Count 184 k/uL (150-450); RBC 4.19 m/uL (3.80-5.40); RDW 12.9 % (11.5-15.5); WBC 3.9 k/uL (3.8-10.6)
[2021-02-01 12:42] LABS: ALT 14 U/L (4-34); AST 25 U/L (14-36); African American GFR (CKD) >90 (>60 ml/min/1.73 sqM); Albumin 3.5 g/dL (3.5-5.0); Alkaline Phosphatase 64 U/L (38-126); Anion Gap 9 mmol/L; Blood Urea Nitrogen 18 mg/dL (7-17); Calcium 8.6 mg/dL (8.4-10.2); Carbon Dioxide 22 mmol/L (22-30); Chloride 107 mmol/L (98-107); Glucose 107 mg/dL (74-99); Non-African American GFR(CKD) 89 (>60 ml/min/1.73 sqM); Potassium 3.8 mmol/L (3.5-5.1); Sodium 138 mmol/L (137-145); Total Bilirubin 0.4 mg/dL (0.2-1.3)
[2021-02-01 12:44] LABS: INR 0.9 (<1.2)
[2021-02-01 12:45] LABS: Partial Thromboplastin Time 22.2 sec (22.0-30.0); Prothrombin Time 9.7 sec (9.0-12.0)
--- NOTE | 2021-02-01 12:55 | XR ---
EXAMINATION TYPE: XR chest 2V DATE OF EXAM: 02/01/2021 COMPARISON: 11/09/2018 HISTORY: 71 years Female. STUDY INDICATION GIVEN: cough sob . TECHNIQUE: Frontal lateral chest radiographs IMPRESSION: There is a new opacity in the right lower lobe which could represent a developing pneumonia or less l ikely lung nodule, repeat chest x-ray 2 or 3 months after appropriate treatment is recommended. No pneumothorax or pleural effusion. The heart is normal in size. Atherosclerotic calcifications are seen in the intrathoracic aorta. Dense bilateral perihilar tiny nodularities similar to prior study likely related to remote granuloma tous infection. No acute osseous abnormality.
[2021-02-01 13:09] VITALS: BP 139/61; PULSE 98; TEMP 98
[2021-02-01] MEDS ORDERED: CASIRIVIMAB/IMDEVIMAB (EUA) 1,200 MG in SODIUM CHLORIDE 0.9% 100 ML IVPB ONE (14:00)
[2021-02-01] MEDS ORDERED: SODIUM CHLORIDE 0.9% 50 ML IVPB ONE (14:30)
== END 2021-02-01 16:03 | disposition home or self-care (01) ==
LOC: EC 11:32
DX: U07.1 COVID-19 (principal); I10 Essential (primary) hypertension; E78.5 Hyperlipidemia, unspecified; E03.9 Hypothyroidism, unspecified; J44.9 Chronic obstructive pulmonary disease, unspecified; F41.9 Anxiety disorder, unspecified; F32.9 Major depressive disorder, single episode, unspecified; E66.9 Obesity, unspecified; Z79.51 Long term (current) use of inhaled steroids; Z79.899 Other long term (current) drug therapy; Z87.891 Personal history of nicotine dependence; Z80.3 Family history of malignant neoplasm of breast; Z82.49 Family history of ischemic heart disease and other diseases of the circulatory system; Z83.3 Family history of diabetes mellitus; Z85.828 Personal history of other malignant neoplasm of skin; Z88.5 Allergy status to narcotic agent; Z88.8 Allergy status to other drugs, medicaments and biological substances; Z68.37 Body mass index [BMI] 37.0-37.9, adult
CPT/HCPCS: 36415; 93005; 85379; 80053; 84484; 85025; 85610; 85730; 87502; 87635; 71046; 96365; 99285; Q0243

== ENCOUNTER 2021-02-18 11:41 | Emergency (ER) | payer MEDICARE, OTHER ==
[2021-02-18 12:19] VITALS: BP 174/89; PULSE 72; RESP 18; TEMP 98.1
--- NOTE | 2021-02-18 12:41 | ED ---
General Adult HPI - General Chief complaint: ENT Stated complaint: bilat ear pain Time Seen by Provider: 02/18/21 12:29 Source: patient, RN notes reviewed, old records reviewed Mode of arrival: ambulatory Limitations: no limitations - History of Present Illness Initial comments: 71-year-old female presenting with bilateral ear pain. Patient had coronavirus approximately 3 weeks ago. She had developed an ear effusion and has persistent pain. She did take one dose of Zyrtec and 1 dose of Flonase without improvement. She denies fever. She denies significant congestion or rhinorrhea. No worsening cough or dyspnea. No abdominal pain nausea vomiting. - Related Data Home Medications Medication Instructions Recorded Confirmed ALPRAZolam [Xanax] 0.25 mg PO DAILY PRN 11/16/17 01/14/21 Calcium Carbonate [Calcium] 600 mg PO DAILY 11/16/17 01/14/21 Cholecalciferol [Vitamin D3] 1,000 unit PO DAILY 11/16/17 01/14/21 FLUoxetine HCL [PROzac] 20 mg PO DAILY 11/16/17 01/14/21 Fluticasone Propionate [Flovent 2 puff INHALATION BID 11/16/17 01/14/21 Hfa 110mcg] Glucosam/Russell-Msm1/C/Mauro/Bosw 1 each PO DAILY 11/16/17 01/14/21 [Glucosamine-Chondroitin Tablet] Levalbuterol Tartrate [Xopenex Hfa 1 puff INHALATION DAILY 11/16/17 01/14/21 Inhaler] Levothyroxine Sodium [Synthroid] 75 mcg PO DAILY 11/16/17 01/14/21 Multivitamins, Thera [Multivitamin 1 tab PO DAILY 11/16/17 01/14/21 (formulary)] Omeprazole 20 mg PO WEEKLY 11/16/17 01/14/21 Rizatriptan Benzoate [Maxalt [employer]] 10 mg PO DIRECTED 11/16/17 01/14/21 Olmesartan [Benicar] 20 mg PO DAILY 01/03/19 01/14/21 Cetirizine HCl [Zyrtec] 10 mg PO DAILY 01/14/21 01/14/21 Previous Rx's Medication Instructions Recorded Acyclovir 1 applic TOPICAL DIRECTED 4 01/14/21 Days #5 gram Azithromycin [Zithromax Z-pack (6 0 mg PO DIRECTED #1 packet 02/01/21 tabs)] Cetirizine HCl [Zyrtec] 10 mg PO DAILY #30 tab 02/18/21 Fluticasone Nasal [place] [Flonase 2 spr EA NOSTRIL DAILY #16 gm 02/18/21 Nasal [place]] Allergies Allergy/AdvReac Type Severity Reaction Status Date / Time amlodipine Allergy Unknown Verified 02/18/21 12:19 budesonide [From Symbicort] Allergy Anaphylaxis Verified 02/18/21 12:19 formoterol [From Symbicort] Allergy Anaphylaxis Verified 02/18/21 12:19 tetracycline Allergy Nausea Verified 02/18/21 12:19 morphine AdvReac Unknown Verified 02/18/21 12:19 Review of Systems ROS Statement: Those systems with pertinent positive or pertinent negative responses have been documented in the HPI. ROS Other: All systems not noted in ROS Statement are negative. Past Medical History Past Medical History: Cancer, COPD, Hyperlipidemia, Hypertension, Musculoskeletal Disorder, Thyroid Disorder Additional Past Medical History / Comment(s): Hypothyroidism. Diverticulosis. Osteopenia. Chronic knee problems. 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 COVID-10 Jan 2021 History of Any Multi-Drug Resistant Organisms: None Reported Past Surgical History: Breast Surgery, Hysterectomy, Tonsillectomy Additional Past Surgical History / Comment(s): OSCAR with unilateral oophorectomy in 1986. Bilateral prophylactic mastectomies in 1977. Her remaining ovary removed(benign) in the . Colon resection for diverticulosis. Colonoscopy 2013. Cryotherapy of squamous cell skin cancer on the back 2020. Past Anesthesia/Blood Transfusion Reactions: No Reported Reaction Past Psychological History: Anxiety, Depression Smoking Status: Former smoker Past Alcohol Use History: None Reported Past Drug Use History: None Reported - Past Family History Father Family Medical History: Myocardial Infarction ([place]) Additional Family Medical History / Comment(s): She is adopted so family history is limited. A grandmother had breast cancer. Father was an alcoholic. Son(s) Family Medical History: Diabetes Mellitus General Exam Limitations: no limitations General appearance: alert, in no apparent distress Head exam: Present: atraumatic, normocephalic Eye exam: Present: normal appearance, PERRL ENT exam: Absent: TM's normal bilaterally (Bilateral ear effusion) Neck exam: Present: normal inspection. Absent: tenderness, meningismus Respiratory exam: Present: normal lung sounds bilaterally. Absent: respiratory distress, wheezes Cardiovascular Exam: Present: regular rate, normal rhythm GI/Abdominal exam: Present: soft. Absent: distended, tenderness, guarding Extremities exam: Present: normal inspection, normal capillary refill. Absent: pedal edema Neurological exam: Present: alert, oriented X3, CN II-XII intact. Absent: motor sensory deficit (No ataxia, normal strength throughout) Course Vital Signs 02/18/21 12:15 Temperature 98.1 F Pulse Rate 72 Respiratory 18 Rate Blood Pressure 174/89 O2 Sat by Pulse 93 L Oximetry Medical Decision Making - Medical Decision Making Patient with bilateral ear pain, effusion after viral infection. Patient will take Zyrtec and Flonase. She will follow-up with her primary care physician. Disposition Clinical Impression: COVID-19, Acute effusion of both middle ears Disposition: HOME SELF-CARE Instructions (If sedation given, give patient instructions): Earache (ED), Serous Otitis Media (ED) Prescriptions: Fluticasone Nasal [place] [Flonase Nasal [place]] 2 spr EA NOSTRIL DAILY #16 gm Cetirizine HCl [Zyrtec] 10 mg PO DAILY #30 tab Is patient prescribed a controlled substance at d/c from ED?: No Referrals: Harika Huggins III, MD [Primary Care Provider] - 1-2 days Time of Disposition: 12:40
== END 2021-02-18 12:52 | disposition home or self-care (01) ==
LOC: EC 11:41
DX: U07.1 COVID-19 (principal); H92.03 Otalgia, bilateral; I10 Essential (primary) hypertension; J44.9 Chronic obstructive pulmonary disease, unspecified; E78.5 Hyperlipidemia, unspecified; E03.9 Hypothyroidism, unspecified; F32.9 Major depressive disorder, single episode, unspecified; F41.9 Anxiety disorder, unspecified; Z79.51 Long term (current) use of inhaled steroids; Z79.890 Hormone replacement therapy; Z79.899 Other long term (current) drug therapy; Z87.891 Personal history of nicotine dependence; Z88.5 Allergy status to narcotic agent; Z88.8 Allergy status to other drugs, medicaments and biological substances; Z85.828 Personal history of other malignant neoplasm of skin; Z83.3 Family history of diabetes mellitus; Z82.49 Family history of ischemic heart disease and other diseases of the circulatory system; Z80.3 Family history of malignant neoplasm of breast
CPT/HCPCS: 99282

== ENCOUNTER → 2023-01-19 | Outpatient (CLI) | payer MEDICARE, OTHER ==
[2023-01-19 13:09] LABS: African American GFR (CKD) 79 (>60 ml/min/1.73 sqM); Blood Urea Nitrogen 27 mg/dL (7-17); Non-African American GFR(CKD) 68 (>60 ml/min/1.73 sqM)
--- NOTE | 2023-01-19 13:55 | CT ---
EXAMINATION TYPE: CT angio chest DATE OF EXAM: 01/19/2023 COMPARISON: None HISTORY: SOB CT DLP: 588.6 mGycm CONTRAST: CT chest with contrast and 3D reconstruction with MIP imaging is performed with IV Contrast, patient injected with 60 mL of Isovue 370. Contrast-enhanced CT of the chest was performed through the course of the pulmonary arteries with mica g and mediastinal window settings submitted. 3D reconstruction with MIP imaging was also performed. PULMONARY ARTERIES: The pulmonary arteries and their major tributaries are patent. I do not see konstantin dence for sizable filling defect to suggest pulmonary embolic process. LUNGS: The lungs are clear and free of infiltrate. No evidence for atelectasis. No pulmonary nodule or mass is detected. No pleural effusion. MEDIASTINUM: Thoracic aorta is of normal caliber.The heart is not enlarged. No evidence for mediast inal mass. No mediastinal lymph nodes greater than 1cm. HILAR STRUCTURES: No evidence for mass. No hilar lymph nodes greater than 1 cm. UPPER ABDOMEN: No significant abnormality is seen. IMPRESSION: 1. No evidence for Pulmonary embolism at this time.
== END | disposition home or self-care (01) ==
LOC: RADCTMAIN 12:28
PROVIDERS: ATTEND Internal Medicine
DX: R06.02 Shortness of breath (principal)
CPT/HCPCS: 82565; 84520; 71275; 36415; Q9967

== ENCOUNTER → 2023-03-03 | Outpatient (CLI) | payer MEDICARE, OTHER ==
--- NOTE | 2023-03-03 18:07 | CA ---
Transthoracic Echo Report Name: Barbra Umana Age: 73 Gender: F : 1950 Exam Date: 03/03/2023 15:30 Exam Location: [place] [facility] Ht (in): 64 Wt (lb): 222 Ordering Physician: Gelacio Vo MD Attending/Referring Phys: Assemblyman Or Woman Madonna Hanna RDCS Procedure CPT: Indications: R06.09 Other forms of dyspnea Cardiac Hx: Technical Quality: Fair Contrast 1: Total Dose (mL): Contrast 2: Total Dose (mL): MEASUREMENTS (Male / Female) Normal Values 2D ECHO LV Diastolic Diameter PLAX 4.0 cm 4.2 - 5.9 / 3.9 - 5.3 cm LV Systolic Diameter PLAX 2.8 cm IVS Diastolic Thickness 1.4 cm 0.6 - 1.0 / 0.6 - 0.9 cm LVPW Diastolic Thickness 1.2 cm 0.6 - 1.0 / 0.6 - 0.9 cm LV Relative Wall Thickness 0.7 RV Internal Dim ED PLAX 2.9 cm LA Volume 50.2 cm??? 18 - 58 / 22 - 52 cm??? LA Volume Index 23.0 cm???/m??? 16 - 28 cm???/m??? M-MODE Aortic Root Diameter MM 2.8 cm LA Systolic Diameter MM 3.7 cm LA Ao Ratio MM 1.3 AV Cusp Separation MM 2.0 cm DOPPLER AV Peak Velocity 165.4 cm/s AV Peak Gradient 10.9 mmHg AV Mean Velocity 105.2 cm/s AV Mean Gradient 5.2 mmHg AV Velocity Time Integral 31.1 cm LVOT Peak Velocity 123.3 cm/s LVOT Peak Gradient 6.1 mmHg LVOT Velocity Time Integral 29.1 cm MV Area PHT 3.3 cm??? Mitral E Point Velocity 76.6 cm/s Mitral A Point Velocity 110.6 cm/s Mitral E to A Ratio 0.7 MV Deceleration Time 231.0 ms MV E' Velocity 7.3 cm/s Mitral E to MV E' Ratio 10.5 TR Peak Velocity 206.5 cm/s TR Peak Gradient 17.1 mmHg Right Ventricular Systolic Press 22.1 mmHg FINDINGS Left Ventricle Moderately increased left ventricular wall thickness. Left ventricular cavity size normal. Normal left ventricular systolic function with no obvious regional wall motion abnormalities. Left ventricular ejection fraction is estimated at 55-60 %. Right Ventricle Normal right ventricular size and function. Right ventricular systolic pressure within normal limits. Right Atrium Normal right atrial size. Left Atrium Normal left atrial size. Mitral Valve Structurally normal mitral valve. No mitral stenosis, regurgitation or prolapse. Aortic Valve No aortic valve stenosis or regurgitation. Tricuspid Valve Structurally normal tricuspid valve. Mild tricuspid regurgitation. Pulmonic Valve Trace pulmonic regurgitation. Pericardium No pericardial effusion. Aorta Normal size aortic root and proximal ascending aorta. CONCLUSIONS Normal LV function Previewed by: Dr. Anthony Rico MD (Electronically Signed) Final Date: 03 March 2023 18:06
== END | disposition home or self-care (01) ==
LOC: RADECHMAIN 15:26
PROVIDERS: ATTEND Internal Medicine
DX: I07.1 Rheumatic tricuspid insufficiency (principal); R06.09 Other forms of dyspnea
CPT/HCPCS: 93306

== ENCOUNTER → 2023-11-25 | Outpatient (CLI) | payer MEDICARE, OTHER ==
--- NOTE | 2023-11-26 10:08 | US ---
EXAMINATION TYPE: US thyroid st tissue head/neck DATE OF EXAM: 11/25/2023 COMPARISON: NONE CLINICAL INDICATION: Female, 73 years old with history of E04.1 THYROID NODULE; Patient states she anand s thyroid nodule. On thyroid meds. GLAND SIZE: Right Lobe: 2.7 x 1.3 x 1.1 cm Overall Parenchyma: homogeneous Left Lobe: 2.3 x 1.0 x 0.8 cm Overall Parenchyma: homogeneous Isthmus Thickness: 0.3 cm NODULES RIGHT: # of nodules measured on right: 1 1. 1.3 X 1.0 x 1.2 cm, lower medial, solid or almost completely solid, isoechoic nodule, which is t aller than wide, with smooth margins, without echogenic foci. Prior size: No prior here LEFT: # of nodules measured on left: 2 1. 1.0 X 1.0 x 0.6 cm, upper medial, solid or almost completely solid, isoechoic nodule, which is w ider than tall, with smooth margins, without echogenic foci. Prior size: No prior here 2. 0.6 X 0.5 x 0.4 cm, lower medial, solid or almost completely solid, hyperechoic nodule, which i s wider than tall, with smooth margins, without echogenic foci. Prior size: No prior here ISTHMUS: # of nodules measured in the isthmus: 0 Bilateral neck scanned, no evidence of lymphadenopathy. IMPRESSION: 1. Atrophic thyroid gland. 2. 1.3 cm TR 4 right lobe nodule. Fine-needle aspiration is recommended if the nodule grows to 1.5 cm in size. Yearly follow-up is recommended. 3. 2 TR 3 nodules in left lobe of the thyroid 2017 ACR TI-RADS LEVEL: TR 4 *Highest TI-RADS level nodule reported
== END | disposition home or self-care (01) ==
LOC: RADUSWWP 15:57
PROVIDERS: ATTEND Internal Medicine
DX: E04.2 Nontoxic multinodular goiter (principal); E03.4 Atrophy of thyroid (acquired)
CPT/HCPCS: 76536

== ENCOUNTER → 2023-11-25 | Outpatient (CLI) | payer MEDICARE, OTHER ==
--- NOTE | 2023-11-25 20:04 | MR ---
EXAMINATION TYPE: MR brain wo/w con DATE OF EXAM: 11/25/2023 COMPARISON: NONE HISTORY: Headaches, Left ear pain and pressure TECHNIQUE: Multiplanar, multisequence images of the brain and brainstem is performed without and with IV contras t, utilizing 10 mL intravenous Gadavist . FINDINGS: Diffusion weighted images demonstrate no evidence of a recent infarct or other diffusion ab normality. The ventricular system and cisternal spaces are normal in size and appearance. The brain volume is age appropriate. Occasional tiny focus of T2 hyperintensity scattered throughout the white matter bilaterally. Less than 5 distinct lesions are seen. Midline structures demonstrate normal morphology. The craniocervical junction appears within normal limits. Post contrast images demonstrate no abnormal enhancement. The dural venous sinuses appear pa tent. Bilateral aphakia is present.. The paranasal sinuses are grossly clear. No suspicious fluid sig nal in the mastoid air cells bilaterally. IMPRESSION: No suspicious findings to account for patient's symptoms.
== END | disposition home or self-care (01) ==
LOC: RADMRIMAIN 14:26
PROVIDERS: ATTEND Internal Medicine
DX: G43.909 Migraine, unspecified, not intractable, without status migrainosus (principal); H92.02 Otalgia, left ear
CPT/HCPCS: 70553; A9585

== ENCOUNTER 2023-12-10 07:47 | Day surgery (SDC) | payer MEDICARE, OTHER ==
[2023-12-10 09:15] VITALS: RESP 16; TEMP 98
[2023-12-10 09:54] VITALS: BP 146/81; PULSE 60
--- NOTE | 2023-12-10 12:45 | US ---
EXAMINATION TYPE: US FNA first lesion DATE OF EXAM: 12/10/2023 9:55 AM CLINICAL INDICATION:Female, 73 years old with history of E04.1 thyroid nodule; , thyroid nodule. COMPARISON: None ATTENDING: Dr. Alden Sharma PROCEDURE: Informed consent was obtained. The risks and benefits of the procedure were discussed with the patien t. The site was marked. Timeout procedure was performed Ultrasound imaging demonstrates right thyroid nodule The patient was prepped, draped in the usual sterile fashion, and locally anesthetized with 1% lidoca ine. Five fine needle aspiration were then performed with a 25 gauge needle. Samples were sent to [facility] pathology department for further analysis. Patient tolerated the procedure without incident and wa s sent home in stable condition. IMPRESSION: Successful ultrasound guided fine needle aspiration.
== END 2023-12-10 09:57 | disposition home or self-care (01) ==
LOC: RADPROMAIN 07:47
PROVIDERS: ATTEND Internal Medicine
DX: E04.1 Nontoxic single thyroid nodule (principal)
CPT/HCPCS: 10005; 88173; 88305

== ENCOUNTER 2024-01-18 14:37 | Emergency (ER) | payer MEDICARE, OTHER | END 2024-01-18 22:20 | disposition home or self-care (01) | LOC: EC 14:37 | DX: F41.9 Anxiety disorder, unspecified (principal) | CPT/HCPCS: 82075; 99282 ==